=== PATIENT | female | born 1935 | race Caucasian/White ===

== ENCOUNTER 2019-09-11 21:43 | Emergency (ER) | payer MEDICARE, BC ==
[~2019-09-11] VITALS: Ht 162.6 cm; Wt 72.7 kg
[2019-09-11 21:54] VITALS: TEMP 97.3
[2019-09-11 22:23] LABS: BASO % 0.4 % (0.0-2.0); EOS # 0.2 (0.0-0.7); EOS % 1.6 % (0-4.0); GRAN # 6.1 (1.4-6.5); GRAN % 60.5 % (42.2-75.2); HEMATOCRIT 42.3 % (37.0-47.0); HEMOGLOBIN 14.1 g/dl (12.5-16.0); MEAN CELL VOLUME 91 fl (80.0-100.0); MEAN CORPUSCULAR HEMOGLOBIN 30 pg (27.0-31.0); MEAN CORPUSCULAR HGB CONC 33 g/dl (33.0-37.0); MEAN PLATELET VOLUME 9.5 fl (7.4-10.4); MONO # 0.7 (0.1-0.6); PLATELET COUNT 188 K/mm3 (130-400); RED BLOOD COUNT 4.64 M/mm3 (4.10-5.30); REDCELL DISTRIBUTION WIDTH-CV 12.9 % (11.5-14.5)
[2019-09-11 22:38] LABS: ALANINE AMINOTRANSFERASE 26 U/L (9-52); ALBUMIN 4.3 gm/dL (3.5-5.0); ALKALINE PHOSPHATASE 118 U/L (50-136); ANION GAP 11 mmol/L (7-16); AST,SGOT 48 U/L (15-37); BILIRUBIN,TOTAL 0.4 mg/dL (0.0-1.0); BLOOD UREA NITROGEN 14 mg/dL (7-17); CALCIUM 9.3 mg/dL (8.4-10.2); CARBON DIOXIDE 18 mmol/L (22-30); CHLORIDE 110 mmol/L (98-107); CREATININE, serum 0.84 (0.52-1.25); GLUCOSE 152 mg/dL (74-106); POTASSIUM 3.4 mmol/L (3.4-5.0); SODIUM 139 mmol/L (137-145); TOTAL PROTEIN 7.1 gm/dL (6.4-8.2)
[2019-09-11 22:39] LABS: C-REACTIVE PROTEIN < 0.5 mg/dL (0.0-0.9)
[2019-09-11 22:58] LABS: D-DIMER > 5250.00 ng/mLDDu (200-230)
[2019-09-11 23:30] VITALS: BP 138/86; PULSE 95
[2019-09-11 23:45] LABS: PROTHROMBIN TIME 11.2 SECONDS (9.7-12.8)
[2019-09-12] MEDS ORDERED: CARDIZEM120 MG PO (00:25)
[2019-09-12] MEDS ORDERED: PRILOSEC 20MG20 MG PO (00:26)
[2019-09-12] MEDS ORDERED: PRINIVIL20 MG PO (00:30)
[2019-09-12] MEDS ORDERED: SPIRIVA RE2.5 MCG/Ac IH (00:30)
[2019-09-12] MEDS ORDERED: ZOCOR 10MG10 MG PO (00:31)
[2019-09-12] MEDS ORDERED: CALCIUM 600MG+D1 TAB PO ×2 (00:31)
[2019-09-12] MEDS ORDERED: ASPIRIN 81M81 MG/TA2 PO (00:32)
[2019-09-12] MEDS ORDERED: OCUVITE1 TA1 PO (00:34)
[2019-09-12] MEDS ORDERED: MAXZIDE-25MG TA1 TAB PO (00:34)
== END 2019-09-11 23:30 | disposition short-term general hospital (02) ==
LOC: COL.ER 21:43
PROVIDERS: Family Medicine
DX: I71.9 Aortic aneurysm of unspecified site, without rupture (principal); I48.91 Unspecified atrial fibrillation
CPT/HCPCS: J3010; J7030; Q9967